=== PATIENT | male | born 1955 | race Caucasian/White ===

== ENCOUNTER 2022-02-12 09:06 | Emergency (ER) | payer BC ==
[2022-02-12] MEDS ORDERED: Acetaminophen 500 MG TAB ONE (10:47)
[2022-02-12] MEDS ORDERED: Ketorolac Tromethamine 30 MG/ML VIAL ONE (10:47)
[2022-02-12] MEDS ORDERED: Dexamethasone 10 MG/ML VIAL ONE (10:49)
== END 2022-02-12 10:57 | disposition home or self-care (01) ==
LOC: CSHERS 09:06
DX: M54.31 Sciatica, right side (principal)
CPT/HCPCS: 96372; 99283; J1100; J1885

== ENCOUNTER 2022-11-08 08:16 | Day surgery (SDC) | payer BC ==
[2022-11-06 11:21] VITALS: BMI 27.8
[2022-11-08] MEDS ORDERED: PROPOFOL 40 ML ONE (10:55)
[2022-11-08] MEDS ORDERED: Lidocaine 1% PF 5 ML VIAL ONE (11:03)
== END 2022-11-08 11:57 | disposition home or self-care (01) ==
LOC: CSHSDC 08:16
PROVIDERS: ATTEND Internal Medicine Gastroenterology
PROC: 0DJD8ZZ Inspection of Lower Intestinal Tract, Via Natural or Artificial Opening Endoscopic (ICD-10-PCS; principal; 2022-11-08)
DX: K57.30 Diverticulosis of large intestine without perforation or abscess without bleeding (principal); E78.5 Hyperlipidemia, unspecified; G47.30 Sleep apnea, unspecified; I10 Essential (primary) hypertension; Z86.010 Personal history of colon polyps; K64.9 Unspecified hemorrhoids; Z90.49 Acquired absence of other specified parts of digestive tract; Z79.899 Other long term (current) drug therapy
CPT/HCPCS: J2704